=== PATIENT | male | born 1995 | race Caucasian/White ===

== ENCOUNTER 2024-04-03 17:49 | Emergency (ER) | payer MEDICAID ==
[~2024-04-03] VITALS: Ht 185.4 cm; Wt 110.9 kg
[2024-04-03 18:23] VITALS: BP 126/67; PULSE 89; TEMP 98.5; O2SAT 100
[2024-04-03 20:29] VITALS: RESP 16
[2024-04-03] MEDS: ketorolac trometh 15mg/ml vial 15 MG/ML ML IM ONE (20:29)
== END 2024-04-03 20:34 | disposition home or self-care (01) ==
LOC: ER 17:50
DX: S39.012A Strain of muscle, fascia and tendon of lower back, initial encounter (principal); G89.29 Other chronic pain; X58.XXXA Exposure to other specified factors, initial encounter; Y93.89 Activity, other specified; Y92.89 Other specified places as the place of occurrence of the external cause; Y99.8 Other external cause status
CPT/HCPCS: 96372; 99283; J1885

== ENCOUNTER 2024-05-23 23:17 | Emergency (ER) | payer MEDICAID ==
[~2024-05-23] VITALS: Ht 185.4 cm; Wt 81.8 kg
[2024-05-23 23:18] VITALS: BP 118/73; PULSE 101; RESP 18; O2SAT 100
[2024-05-23 23:56] VITALS: TEMP 97.7
== END 2024-05-23 23:58 | disposition home or self-care (01) ==
LOC: ER 23:17
DX: R55 Syncope and collapse (principal); F17.210 Nicotine dependence, cigarettes, uncomplicated
CPT/HCPCS: 93005; 99283

== ENCOUNTER 2024-07-06 22:24 | Emergency (ER) | payer MEDICAID ==
[~2024-07-06] VITALS: Ht 185.4 cm; Wt 116.0 kg
[2024-07-06] MEDS: ondansetron/PF 4mg/2ml inj IV ONE (23:20)
[2024-07-06] MEDS: normal saline 1000ml 1,000 ML IV ONE (23:20)
[2024-07-06] MEDS: pantoprazole 40 MG vial IV ONE (23:20)
[2024-07-06 23:21] LABS: ALANINE AMINOTRANSFERASE 28 U/L (12-78); ALBUMIN 2.7 G/DL (3.4-5.0); ALBUMIN/GLOBULIN RATIO 0.5 (1.1-1.5); ALKALINE PHOSPHATASE 122 IU/L (46-116); ANION GAP 6 (8-16); ASPARTATE AMINO TRANSFERASE 21 U/L (10-37); BILIRUBIN,TOTAL 0.2 MG/DL (0.1-1.0); BLOOD UREA NITROGEN 6 MG/DL (7-18); BUN/CREATININE RATIO 5.3 (10.0-20.0); CALCIUM 8.6 MG/DL (8.5-10.1); CHLORIDE 103 MMOL/L (99-107); CREATININE 1.14 MG/DL (0.60-1.10); GLUCOSE 92 MG/DL (70-104); LIPASE 21 U/L (16-77); POTASSIUM 3.7 MMOL/L (3.5-5.1); SODIUM 140 MMOL/L (135-145); TOTAL CARBON DIOXIDE 31.2 MMOL/L (24-32); TOTAL PROTEIN 8.6 G/DL (6.4-8.2); eCRCL 107 ML/MIN; eGFR 75 ML/MIN
[2024-07-06 23:25] LABS: BILIRUBIN,URINE NEGATIVE (Neg); CLARITY,URINE CLEAR (Clear); COLOR,URINE YELLOW (Yellow); GLUCOSE, URINE NEGATIVE (Neg); KETONES,URINE NEGATIVE (Neg); LEUKOCYTE ESTERASE ,URINE NEGATIVE (Neg); NITRITES, URINE NEGATIVE (Neg); OCCULT BLOOD,URINE NEGATIVE (Neg); PROTEIN,URINE NEGATIVE (Neg); UROBILINOGEN,URINE 0.2 E.U/dL (0.2-1.0)
[2024-07-06 23:25] LABS: BASOPHILS # (AUTO) 0.1 X10'3 (0-0.2); BASOPHILS % (AUTO) 0.6 % (0-1); EOSINOPHILS # (AUTO) 0.7 X10'3 (0-0.9); EOSINOPHILS % (AUTO) 5.5 % (0-6); HEMATOCRIT 34.2 % (42.0-52.0); LYMPHOCYTES # (AUTO) 1.6 X10'3 (1.1-4.8); LYMPHOCYTES % (AUTO) 12.5 % (21-51); MEAN CORPUSCULAR HEMOGLOBIN 21.3 PG (27.0-31.0); MEAN CORPUSCULAR HGB CONC 32.1 g/dL (33.0-36.5); MEAN CORPUSCULAR VOLUME 66.4 FL (78-98); MEAN PLATELET VOLUME 6.9 FL (7.4-10.4); MONOCYTES # (AUTO) 1.2 X10'3 (0-0.9); MONOCYTES % (AUTO) 9.6 % (2-12); NEUTROPHILS # (AUTO) 9.1 X10'3 (1.8-7.7); NEUTROPHILS % (AUTO) 71.8 % (42-75); PLATELET COUNT 571 X10'3 (140-440); RED BLOOD COUNT 5.14 X10'6 (4.70-6.10); RED CELL DISTRIBUTION WIDTH 15.7 % (11.5-14.5); WHITE BLOOD COUNT 12.7 X10'3 (4.5-11.0)
[2024-07-06 23:27] LABS: UA COLLECTION TYPE CLN CATCH MIDSTREAM
[2024-07-06 23:48] LABS: ANISOCYTOSIS 1+; MICROCYTOSIS 2+; PLATELET ESTIMATE INCREASED
[2024-07-06 23:57] LABS: CREATINE KINASE 68 U/L (39-308); MAGNESIUM 2.1 MG/DL (1.5-2.4)
[2024-07-07] MEDS ORDERED: iohexol 300mg/ml 100ml inj. ONE (01:44)
[2024-07-07] MEDS: normal saline 1000ml 1,000 ML IV ONE (01:45)
[2024-07-07] MEDS ORDERED: ONDA-243 PO (05:17)
[2024-07-07 05:41] VITALS: BP 119/87; PULSE 97; RESP 19; TEMP 98.8; O2SAT 100
[2024-07-07 08:46] LABS: C DIFF ANTIGEN NEGATIVE (NEGATIVE); C DIFF SPECIMEN=DIARRHEA? ACCEPTABLE; C DIFFICILE TOXINS A&B NEGATIVE (Neg)
== END 2024-07-07 05:43 | disposition home or self-care (01) ==
LOC: ER 22:24
DX: K52.9 Noninfective gastroenteritis and colitis, unspecified (principal); Z20.822 Contact with and (suspected) exposure to COVID-19
CPT/HCPCS: 36415; 74177; 80053; 81003; 82550; 83605; 83690; 83735; 84484; 85008; 85025; 86885; 86900; 86901; 87040; 87324; 87449; 87502; 87503; 87811; 93005; 96365; 96375; 99285; J2405; J2470; J7030; Q9967